=== PATIENT | male | born 1945 | race Caucasian/White ===

== ENCOUNTER → 2021-09-26 | Day surgery (SDC) | payer OTHER | LOC: EEVIPCON 08:25 → SPEC 08:25 | PROC: 02HV33Z Insertion of Infusion Device into Superior Vena Cava, Percutaneous Approach (ICD-10-PCS; principal; 2021-09-26) | DX: N39.0 Urinary tract infection, site not specified (principal); Z79.2 Long term (current) use of antibiotics | CPT/HCPCS: 36569; C1751 ==